=== PATIENT | female | born 1975 | race Caucasian/White ===

== ENCOUNTER 2019-09-11 19:08 | Emergency (ER) | payer OTHER, SELFPAY ==
[2019-09-11 19:24] VITALS: BP 158/92; PULSE 89; RESP 16; TEMP 36.7; O2SAT 100
--- NOTE | 2019-09-11 19:38 | ED.LOWEXIN ---
HPI - Extremity Injury (Lower) General Chief Complaint: Extremity Injury, Lower Stated Complaint: bruise on bottom of foot Time Seen by Provider: 09/11/19 19:41 Source: patient and family History of Present Illness HPI Narrative: Patient presents with left calf pain and pain to the bottom of her left foot. Patient has a quarter sized area of swelling and tenderness to the bottom of her left foot. Patient denies any injury. Patient states she has had calf pain and tenderness for the past 2 to 3 days. Patient denies any injury. Patient is concerned that she may have a blood clot in her leg. Related Data Home Medications Medication Instructions Recorded Confirmed No Home Medications 09/11/19 09/11/19 Allergies Allergy/AdvReac Type Severity Reaction Status Date / Time No Known Allergies Allergy Verified 09/11/19 19:36 Review of Systems Review of Systems: Narrative: CONSTITUTIONAL: Denies fever, chills, or sweats. EYES: Denies visual changes, redness, or discharge. ENT: Denies rhinorrhea, congestion, sore throat, or otalgia. CARDIOVASCULAR: Denies chest pain, palpitations, or edema. RESPIRATORY: Denies cough or dyspnea. GASTROINTESTINAL: Denies abdominal pain, nausea, vomiting, or diarrhea. GENITOURINARY: Denies dysuria or hematuria. SKIN: Denies rash or itching. MUSCULOSKELETAL: Denies back pain, joint pain, or myalgia. Left calf pain NEUROLOGIC: Denies headache, numbness, or weakness. PSYCHIATRIC: Denies anxiety or depression. PMFSH Comments At time of signature, agree with nursing past medical, surgical, social and family history. There is no relevant family history pertinent to the presenting complaint Exam Narrative: Exam Narrative: GENERAL: Well-appearing, well-nourished, and in no acute distress. HEAD: Normocephalic, atraumatic. EYES: PERRLA and EOMI. ENT: Nares clear, no rhinorrhea or epistaxis. Mucous membranes moist. NECK: Supple. CHEST: Clear to auscultation. No respiratory distress. HEART: Regular rate and rhythm. No murmur heard. Normal peripheral pulses. ABDOMEN: Soft, nontender, nondistended, normal active bowel sounds. EXTREMITIES: Normal range of motion. No edema. Left calf pain and tenderness left calf 17 inches right calf 16 inches pain worse with movement 3cm area of tenderness to plantar side of left foot. SKIN: Warm, dry, no rash. NEURO: No focal deficits. Alert and oriented x3. [place] Coma Scale Eye Opening: Spontaneous 4 [place] Coma Scale Motor: Obeys Commands 6 [place] Coma Scale Verbal: Oriented 5 [place] Coma Scale Total 15 Course Vital Signs Vital signs: Vital Signs Temperature 36.7 C 09/11/19 19:24 Pulse Rate 89 09/11/19 19:24 Respiratory Rate 16 09/11/19 19:24 Blood Pressure 158/92 H 09/11/19 19:24 Pulse Oximetry 100 09/11/19 19:24 Temperature 36.7 C 09/11/19 19:24 Pulse Rate 89 09/11/19 19:24 Respiratory Rate 16 09/11/19 19:24 Blood Pressure 158/92 H 09/11/19 19:24 Pulse Oximetry 100 09/11/19 19:24 Addressed elevated BP today. Today's blood pressure higher than recommended range. Discussed importance of follow -up with PCP and possible intermediate teacher effects/cardiovascular events related to HTN. Currently patient denies headache, dizziness, vision changes, CP or shortness of breath. Transfer Transfered to: [facility]) Transfer rationale: Higher level of care Accepting physician: Dr. Lagunas Transfer comments: Patient transferred per private vehicle Discharge Plan Discharge Clinical Impression: Pain of left calf Patient Disposition: Acute Care Hospital Condition: Stable Additional Instructions: Patient to go to [facility] by private car for further evaluation treatment of left calf pain report given to Diana NYE patient accepted by Dr. Lagunas Prescriptions: No Action No Home Medications RF: 0 Follow-up/Referrals: Silvestre Philippe MD [Primary Care Provider] -
== END 2019-09-11 19:41 | disposition short-term general hospital (02) ==
PROVIDERS: Emergency Provider Nurse Practitioner Family; PCP Emergency Medicine
DX: M79.662 Pain in left lower leg (principal)
CPT/HCPCS: 99212; G0463

== ENCOUNTER 2021-02-22 17:46 | Emergency (ER) | payer OTHER, SELFPAY ==
--- NOTE | ~2021-02-22 | XR_ITS ---
EXAMINATION: XR elbow LT min 3V DATE: 02/22/2021 18:31 INDICATION: Left elbow injury. TECHNIQUE: 4 views of left elbow were obtained. COMPARISON: None. FINDINGS: Bone alignment is normal. No fracture. Joint spaces are well maintained. There is no elbow joint effusion. IMPRESSION: 1. Normal left elbow. Reviewed, dictated and finalized at location A. IMPRESSION: 1. Normal left elbow.
--- NOTE | ~2021-02-22 | XR_ITS ---
EXAMINATION: XR humerus LT DATE: 02/22/2021 18:31 INDICATION: Left upper arm injury. TECHNIQUE: 2 views of left humerus were obtained. COMPARISON: None. FINDINGS: Bone alignment is normal. No fracture. Joint spaces are normal. IMPRESSION: 1. Normal left humerus. Reviewed, dictated and finalized at location A. IMPRESSION: 1. Normal left humerus.
[2021-02-22 17:55] VITALS: BP 169/95; PULSE 81; RESP 16; TEMP 37.1
--- NOTE | 2021-02-22 17:57 | ED.UPPEXIN ---
HPI - Extremity Injury (Upper) General Chief Complaint: Extremity Injury, Upper Stated Complaint: Possible injury to the left Arm Time Seen by Provider: 02/22/21 17:57 Source: patient and RN notes reviewed History of Present Illness HPI narrative: Patient is a 45-year-old female who presents the urgent care with complaints of left arm pain after falling off her couch and hitting her left arm on the coffee table. Patient states that happened on Monday and she did not hit her head or have any loss of consciousness. Patient states that she has been taking Tylenol and ibuprofen for the pain but it is still nagging at her . Patient states that she has been remaining active and using the left arm as normal. Patient is right-hand dominant. No other acute complaints. No acute distress noted. Patient read the plan of care. Some parts of this dictation were generated by voice recognition software and may contain typographical and/or grammatical inaccuracies. Related Data Home Medications Medication Instructions Recorded Confirmed No Home Medications 02/22/21 02/22/21 Allergies Allergy/AdvReac Type Severity Reaction Status Date / Time No Known Allergies Allergy Verified 02/22/21 18:03 Review of Systems Review of Systems: CONSTITUTIONAL: Denies fever, chills, or sweats. EYES: Denies visual changes, redness, or discharge. ENT: Denies rhinorrhea, congestion, sore throat, or otalgia. CARDIOVASCULAR: Denies chest pain, palpitations, or edema. RESPIRATORY: Denies cough or dyspnea. GASTROINTESTINAL: Denies abdominal pain, nausea, vomiting, or diarrhea. GENITOURINARY: Denies dysuria or hematuria. SKIN: Denies rash or itching. MUSCULOSKELETAL: Reports of left upper and left lower arm pain due to fall NEUROLOGIC: Denies headache, numbness, or weakness. All other systems reviewed are negative, except as documented in HPI. PMFSH Comments At the time of my signature, I reviewed and agree with the nursing past medical, surgical, social, and family history. There is no relevant family history pertinent to the patient complaint. Exam Narrative: GENERAL: This is a well-nourished, well-developed patient, in no apparent distress. HEAD: normocephalic, atraumatic. EYES: PERRL. Sclera clear/white. Vision is grossly intact. EARS: External ears normal NOSE: External nose normal with no obvious nasal discharge, nares without redness, no rhinorrhea. THROAT: Mucous membranes moist NECK: Neck supple CARDIOVASCULAR: Regular rate and rhythm without murmurs, gallops, or rubs. RESPIRATORY: Clear to auscultation. Breath sounds equal bilaterally. No wheezes, rales, or rhonchi. SKIN: warm, intact with no suspicious lesions or rash, good texture and turgor. NEURO: awake, alert, and oriented to person, place and time. There were no obvious focal neurologic abnormalities. EXTREMITIES: Scattered healing ecchymotic regions to the left upper arm and proximal left forearm with mild tenderness. Range of motion to left upper extremity within normal limits. Positive strong left radial pulse with capillary refill less than 2 seconds. No obvious deformity or injury. Course Vital Signs Vital signs: Vital Signs Temperature 98.7 F 02/22/21 17:55 Pulse Rate 81 02/22/21 17:55 Respiratory Rate 16 02/22/21 17:55 Blood Pressure 169/95 H 02/22/21 17:55 Temperature 98.7 F 02/22/21 17:55 Pulse Rate 81 02/22/21 17:55 Respiratory Rate 16 02/22/21 17:55 Blood Pressure 169/95 H 02/22/21 17:55 Reviewed-patient is informed that they may have pre-hypertension or hypertension based on a blood pressure reading in the department. I recommend the patient call the primary care provider listed on their discharge instructions or a physician of their choice this week to arrange follow-up for further evaluation of possible pre-hypertension or hypertension. MDM - Extremity Injury (Upper) MDM Narrative Medical decision making narrative: Reviewed x-ray r
== END 2021-02-22 18:45 | disposition home or self-care (01) ==
PROVIDERS: Emergency Provider Nurse Practitioner Family; PCP Emergency Medicine
DX: S40.022A Contusion of left upper arm, initial encounter (principal); W08.XXXA Fall from other furniture, initial encounter
CPT/HCPCS: 73060; 73080; 99214; G0463